=== PATIENT | female | born 1985 | race Caucasian/White ===

== ENCOUNTER 2021-07-27 19:23 | Emergency (ER) | payer OTHER, BC ==
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
== END 2021-07-27 23:50 | disposition home or self-care (01) ==
LOC: FB.ED 19:23
DX: S20.219A Contusion of unspecified front wall of thorax, initial encounter (principal); Z88.0 Allergy status to penicillin; V49.40XA Driver injured in collision with unspecified motor vehicles in traffic accident, initial encounter; Y92.410 Unspecified street and highway as the place of occurrence of the external cause
CPT/HCPCS: 71120; 99284-25